=== PATIENT | female | born 1955 | race Caucasian/White ===

== ENCOUNTER 2018-04-23 15:18 | Inpatient (IN) ==
[2018-04-23] MEDS ORDERED: *HR* HYDROcodone/Acet 7.5/325 mg TABLET PO PRN (17:16)
[2018-04-23] MEDS ORDERED: hydrOXYzine pamoate 25 MG CAPSULE PO PRN (17:16)
[2018-04-23] MEDS ORDERED: cloNIDine HCl 0.1 MG TABLET PO PRN (17:26)
[2018-04-23] MEDS ORDERED: Mag Hydrox/Al Hydrox/Simeth 30 ML UDC PO PRN (17:26)
[2018-04-23] MEDS ORDERED: Ipratropium/Albuterol Neb 3 ML IH PRN (17:29)
[2018-04-23] MEDS ORDERED: D5% in Water 1,000 ML IVC PRN (17:39)
[2018-04-23] MEDS ORDERED: *HR* Dextrose 50 % in Water (Syg) 50 ML SYRINGE IVP PRN (17:39)
[2018-04-23] MEDS ORDERED: Dextrose Gel 15 GM/37.5 ML TUBE PO PRN ×2 (17:39)
[2018-04-23] MEDS ORDERED: Warfarin perPT PO PRN (18:00)
[2018-04-23 19:27] LABS: INR 1.3; Prothrombin Time 14.1 Seconds (9.4-12.1)
[2018-04-23] MEDS ORDERED: *HR* Warfarin 7.5 MG TABLET PO ONE (20:21)
[2018-04-23] MEDS ORDERED: Insulin LISPRO 300 UNITS/3 ML VIAL SQ SCH (21:00)
[2018-04-23] MEDS: hydroCHLOROthiazide 25 MG TABLET PO SCH (21:51)
[2018-04-23] MEDS: Gabapentin 300 MG CAPSULE PO SCH (21:52)
[2018-04-23] MEDS: Budesonide/Formoterol 160/4.5 1 PUFF INH IH SCH (21:53)
[2018-04-23] MEDS: Acetaminophen 325 MG TABLET PO SCH (21:57)
[2018-04-24] MEDS: Acetaminophen 325 MG TABLET PO SCH ×2 (00:23→06:45)
[2018-04-24 06:27] LABS: Basophils % 0.6 %; Eosinophils # 0.3 K/mcL (0.0-0.6); Eosinophils % 3.9 %; Hematocrit 38.7 % (35.3-44.9); Hemoglobin 11.9 g/dL (11.5-15.4); Immature Granulocytes % 0.3 % (0-4); Lymphocytes % 28.2 %; Mean Corpuscular HGB Conc 30.7 g/dL (31.6-35.5); Mean Corpuscular Hemoglobin 28.1 pg (28.0-33.3); Mean Corpuscular Volume 91.3 fL (83.0-100.0); Mean Platelet Volume 12.7 fL (9.4-12.4); Monocytes # 0.5 K/mcL (0.0-1.3); Monocytes % 6.2 %; Neutrophils # 4.4 K/mcL (1.6-8.9); Platelet Count 235 K/mcL (140-400); Red Blood Count 4.24 M/mcL (3.82-4.97); Red Cell Distribution Width 16.9 % (11.5-14.5); Segmented Neutrophils % 60.8 %
[2018-04-24 06:28] LABS: INR 1.2; Prothrombin Time 13.4 Seconds (9.4-12.1)
[2018-04-24 06:30] LABS: Activated Partial Thrombo Time 36.1 Seconds (26.0-36.0)
[2018-04-24 06:46] LABS: Calcium 8.8 mg/dL (8.6-10.3); Potassium 3.6 mEq/L (3.5-5.1)
[2018-04-24] MEDS ORDERED: Insulin LISPRO 300 UNITS/3 ML VIAL SQ SCH (07:30)
[2018-04-24] MEDS ORDERED: Acetaminophen 325 MG TABLET PO PRN (07:48)
[2018-04-24] MEDS: Insulin NPH/REG 70/30 100 UNIT/ML (x5UNIT) SQ SCH ×2 (08:02→17:03)
[2018-04-24] MEDS: Gabapentin 300 MG CAPSULE PO SCH ×3 (08:03→21:08)
[2018-04-24] MEDS: Aspirin Enteric Coated 81 MG Tablet PO SCH (08:03)
[2018-04-24] MEDS: hydroCHLOROthiazide 25 MG TABLET PO SCH ×2 (08:03→21:09)
[2018-04-24] MEDS: Lisinopril 20 MG TABLET PO SCH (08:03)
[2018-04-24] MEDS: Furosemide 40 MG TABLET PO SCH (08:03)
[2018-04-24] MEDS: Beclomethasone 80mcg MDI IH SCH (09:58)
[2018-04-24] MEDS: Budesonide/Formoterol 160/4.5 1 PUFF INH IH SCH ×2 (10:00→21:10)
--- NOTE | 2018-04-24 14:16 | Internal Med History&Physical ---
Date of Encounter: 04/24/18 Time of Encounter: 14:10 Assessment and Plan (1) Weakness Current visit: Yes Status: Acute Patient will undergo assessment by physical therapy. She is nearly independent. She will probably not be here long. She wants to continue to smoke. I suspect that she will want to go home soon. (2) Tobacco abuse Current visit: Yes Status: Acute We discussed smoking cessation and she refuses nicotine patch. Staff feels she is continuing to smoke here. (3) Hypertension Current visit: Yes Status: Acute This is clinically stable and we will follow. Qualifiers: Hypertension type: essential hypertension Qualified Code(s): I10 - Essential (primary) hypertension (4) Osteoarthritis Current visit: Yes Status: Acute This is apparently chronic and will follow. Qualifiers: Osteoarthritis location: hip Osteoarthritis type: unspecified Laterality : right Qualified Code(s): M16.11 - Unilateral primary osteoarthritis, right hip (5) Peripheral neuropathy Current visit: Yes Status: Acute As noted, she takes gabapentin for same. I suspect that this is due to diabetes. It has a stocking glove pattern and is just above the ankles in its distribution, distally. 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 (7) Chronic kidney disease, stage III (moderate) Current visit: Yes Status: Acute Apparently due to diabetes. We will need to follow medications and occasional creatinine levels to make sure she is not worsening. Internal Medicine - H&P: HPI Chief complaint: Weakness Admitted From: Hospital to Hospital Transfer Plans for Post Hospital Care: Home History of present illness: Ms. Andre is a 63 year old female with history of bypass back in 2014 she has weakness in her legs, since then. She and her are very inactive physically but she feels that she needs to strengthen her legs. She has had an episode of CHF for about 8 days at [facility]. She states that her primary care physician should her with Lasix and if she had started that earlier, she would have done better. She had gained 11 pounds and has now lost total of nearly 25 pounds. She feels back to baseline in terms of general energy, breathing, no chest discomfort, etc. She is here because she wants to strengthen her legs and become more active. She is concerned about her restrictions and she has been assessed with physical therapy. They have assessed her as independent up in room. She wants to be independent outside of the room. Nursing staff feels that this means she wants to go outside to smoke. They felt that she was not able to do so. I discussed the nicotine patch with the patient and she is not interested. We reviewed her past medical history including peripheral vascular disease with bypass surgery in 2013. She has been doing relatively well, since then, but has been on Coumadin for same. She is diabetic and was not certain of the name of her insulin. She gave me a pharmacy number and I called them. [facility] pharmacy in [place], [place]. She is on Novolin/3035 units before meals, twice a day. She is on no nocturnal insulin or other insulin. Because of problem with her kidneys, her Glucophage was stopped while hospitalized at [facility]. She takes blood pressure medicine including hydrochlorothiazide for this. She states that her blood pressure has been stable and controlled. She smokes about a pack a day for 47 years. She rarely drinks alcohol. She is disabled because of her multiple arthritic complaints. She used to be a bar pharmacist in charge owner. She lives with her , as above. She had cataracts but these are replaced. She has upper and lower plate full dentures. She has peripheral neuropathy which is presumed to be due to diabetes. She is on chronic pain medicines for same as well as back, hip, knee pain. She takes gabapentin 3 times daily for the neuropathic pain. Past Med Surg Social Fam HX - Past Medical History Medical history: cancer, CHF, coronary artery disease, CVA, diabetes, hyperlipidemia, hypertension, myocardial infarction Additional medical history: CKD Psychiatric history: no psych history - Past Surgical History Surgical History: , coronary bypass (CABG), AUDRA/BSO - Social History Smoking Status: Current every day smoker Smokeless Tobacco Status: No Alcohol use: none Drug use: none Internal Medicine - H&P: Meds Aspirin [Lo-Dose Aspirin EC] 81 mg PO DAILY 03/03/17 [History] Atorvastatin [Lipitor] 80 mg PO HS 03/03/17 [History] Fluticasone Propionate Nasal [Flonase] 50 mcg NS DAILY 03/03/17 [History] Gabapentin [Neurontin] 1,200 mg PO TID 03/03/17 [History] HYDROcodone/Acet 7.5/325 mg [Ohlman 7.5-325 mg] 1 tab PO Q6H PRN 03/03/17 [ History] Insulin DETEMIR [Levemir] 50 - 70 unit SQ BID 03/03/17 [History] LORazepam [Ativan] 1 mg PO HS 03/03/17 [History] Levothyroxine Sodium [Synthroid] 200 mcg PO DAILY 03/03/17 [History] Lisinopril [Zestril] 20 mg PO BID 03/03/17 [History] Pioglitazone [Actos] 15 mg PO DAILY 03/03/17 [History] Tizanidine HCl [Zanaflex] 4 mg PO TID 03/03/17 [History] Warfarin [Coumadin] 7.5 mg PO SUMOTUWETHSA 03/03/17 [History] hydrOXYzine HCl [Hydroxyzine HCl] 25 mg PO QID PRN 03/03/17 [History] hydroCHLOROthiazide [Hydrochlorothiazide] 25 mg PO BID 03/03/17 [History] Doxycycline 100 mg PO BID #14 capsule 04/21/17 [Rx] GlipiZIDE [Glipizide ER] 10 mg PO BID 04/21/17 [History] Warfarin [Coumadin] 7.5 mg PO FR 04/21/17 [History] 3 Allergy/AdvReac Type Severity Reaction Status Date / Time Penicillins Allergy Swelling Verified 04/21/17 09:01 of Lip/Tongue/Throat All Systems PM: Patient has no complaint of chest discomfort, dyspnea, orthopnea, breathing problems, palpitations, nausea or vomiting, constipation or diarrhea, other changes in bowel habits, heartburn, difficulty with urination, kidney problems or kidney stones, fevers chills or sweats, rash or itching, seizures, headache or lightheadedness, heat or cold intolerance, blood problems or anemia, or other new complaints, except as mentioned above. Review of systems is otherwise negative. - Constitutional Vitals: Temp Pulse Resp BP Pulse Ox 98.1 F 62 20 175/67 96 04/24/18 11:33 04/24/18 11:33 04/24/18 11:33 04/24/18 11:33 04/24/18 11:33 Exam: Examination: (Except as mentioned above): General: In no apparent distress, alert and oriented 3. She smells strongly of smoke. Head: Atraumatic and normocephalic. Eyes: Extraocular muscles are intact, pupils equal round and reactive to light and accommodation. Sclerae anicteric. Ears: External ears are normal to inspection and hearing is grossly normal. Nose: Patent without lesion noted. Mouth: No intraoral lesions seen. She wears full upper plate and lower plate dentures. Tongue is beefy red consistent with vitamin deficiency or just chronic smoking. Neck: Supple with trachea midline. There is no thyromegaly or adenopathy and carotids are 2+ without bruit heard. Respiratory: No use of accessory muscles. Lungs are clear throughout. Normal airflow. Cardiovascular: Regular rate and rhythm without murmur appreciated. Abdomen: Bowel sounds are normal. No hepatosplenomegaly masses or tenderness. Morbidly obese and therefore difficult to palpate deeply. Patient is examined upright in chair and this also limits exam. Extremities: No cyanosis clubbing or edema. Neurological: A and O 3. Cranial nerves II through XII are intact. No focal deficits and no abnormal movements or postures. Skin: Appropriate surgical scars at regions expected. Warm and non-diaphoretic with no lesions noted. Breasts, pelvic and rectal: Not examined. Internal Med - H&P Results - Labs CBC & Chem 7: 04/24/18 05:25 04/24/18 05:25 Labs: Short CBC 04/24/18 Range/Units 05:25 WBC 7.2 (4.3-11.1) K/mcL Hgb 11.9 (11.5-15.4) g/dL Hct 38.7 (35.3-44.9) % Plt Count 235 (140-400) K/mcL Neutrophils # 4.4 (1.6-8.9) K/mcL BMP 04/24/18 05:25 Sodium 141 Potassium 3.6 Chloride 103 Carbon Dioxide 32 H BUN 47 H Creatinine 1.74 H Glucose 212 H Calcium 8.8
[2018-04-24] MEDS: *HR* HYDROcodone/Acet 5/325 mg TABLET PO PRN (15:56)
[2018-04-24] MEDS ORDERED: *HR* Warfarin 7.5 MG TABLET PO ONE (18:00)
[2018-04-25 05:48] LABS: INR 1.3; Prothrombin Time 14.3 Seconds (9.4-12.1)
[2018-04-25] MEDS: *HR* HYDROcodone/Acet 5/325 mg TABLET PO PRN ×2 (07:20→17:02)
[2018-04-25] MEDS: Lisinopril 20 MG TABLET PO SCH (08:15)
[2018-04-25] MEDS: Furosemide 40 MG TABLET PO SCH (08:15)
[2018-04-25] MEDS: Aspirin Enteric Coated 81 MG Tablet PO SCH (08:15)
[2018-04-25] MEDS: Gabapentin 300 MG CAPSULE PO SCH ×3 (08:15→21:31)
[2018-04-25] MEDS: hydroCHLOROthiazide 25 MG TABLET PO SCH ×2 (08:15→21:33)
[2018-04-25] MEDS: Insulin NPH/REG 70/30 100 UNIT/ML (x5UNIT) SQ SCH ×2 (08:16→17:01)
[2018-04-25] MEDS: Beclomethasone 80mcg MDI IH SCH (10:04)
[2018-04-25] MEDS: Budesonide/Formoterol 160/4.5 1 PUFF INH IH SCH ×2 (10:04→21:39)
--- NOTE | 2018-04-25 12:11 | Internal Med Progress Note ---
Date of Encounter: 04/25/18 Time of Encounter: 12:07 - Assessment and plan (1) CHF (congestive heart failure) Current Visit: Yes Status: Chronic Assessment and plan: No acute issues at this time. Patient continues to have fine posterior basilar rales heard on exam. Eyes any dyspnea. Patient does state she becomes fatigued after ambulating greater than 75 feet. Patient's current INR is subtherapeutic for her Coumadin. We will start on weight-based Lovenox as a bridge until she becomes therapeutic. Coumadin currently is being titrated per pharmacy. We will obtain a chest x-ray for baseline due to her basilar congestion. We will continue with other medications. States therapy is progressing well and will continue with current therapy Qualifiers: Heart failure type: unspecified Heart failure chronicity: chronic Qualified Code(s): I50.9 - Heart failure, unspecified (2) Tobacco abuse Current Visit: Yes Status: Chronic Assessment and plan: Patient continues to be an active smoker at this time. Patient states no desire to stop smoking but states that she hopes to wean herself off over a period of time. Nurse reports suspicious smell of smoke coming from her room on several occasions. Patient was offered a nicotine patch but refused. Patient states that she has been on nicotine patches and Chantix in the past and have not been effective. (3) Hypertension Current Visit: Yes Status: Chronic Assessment and plan: Patient's blood pressure is been slightly elevated with systolic blood pressure greater than 180. Patient does have when necessary clonidine and use. We will start on low-dose amlodipine. Qualifiers: Hypertension type: essential hypertension Qualified Code(s): I10 - Essential (primary) hypertension (4) Insulin-requiring or dependent type II diabetes mellitus Current Visit: Yes Status: Chronic Assessment and plan: Patients glucose has been slightly elevated since her admission. We will continue with current sliding scale coverage and will continue with her long- acting insulin. We will obtain a hemoglobin A1c on next blood draw (5) Chronic kidney disease, stage III (moderate) Current Visit: Yes Status: Chronic Assessment and plan: No acute issues. Patient's last creatinine was 1.74 with a BUNs of 47. We will continue to monitor patient's renal function by serial labs. We will obtain daily weights - Time Spent With Patient less than 15 minutes - Subjective Interval history: Patient appears relaxed and currently denies any shortness breath or discomforts. Patient does state that she continues to have endurance issues, fatigue after ambulating greater than 50-75 feet. Patient denies any productive cough. Patient noted to have subtherapeutic values on her INRs. Patient states that she takes her Coumadin because of her CHF and severe peripheral vascular disease, stating that she has had a left aorta femoropopliteal bypass in the past. Per patient history, she has a long history of tobacco abuse. Patient continues to smoke with reports of nursing at the smelled smoke from her room on several occasions since her admission. Patient states no desire to stop smoking but states that she is attempting to wean herself off. - Constitutional Vitals: Temp Pulse Resp BP Pulse Ox 98.6 F 72 14 183/77 91 04/25/18 07:03 04/25/18 07:03 04/25/18 07:03 04/25/18 07:03 04/25/18 07:03 General appearance: Present: A&O X 3 - Head Head exam: Present: atraumatic, normocephalic - Eye Eye exam: Present: PERRL, conjuntiva pink, sclera anicteric Pupils: Present: PERRL - Neck Neck exam general surgery: Present: supple, trachea midline. Absent: lymphadenopathy - Respiratory Respiratory exam: Present: CTAB, rales. Absent: accessory muscle use, rhonchi, wheezes Additional comments: Lungs are clear throughout upper tanner but noted fine posterior bibasilar rales. Respiratory effort appears relaxed. No productive cough. - Cardiovascular Cardiovascular exam: Present: RRR, +S1, +S2. Absent: diastolic murmur, gallop, rubs, systolic murmur - GI/Abdominal GI/Abdominal exam: Present: normal bowel sounds, soft, no peritoneal signs. Absent: distended, tenderness - Extremities Exam Extremities exam: Present: warm, radial pulses palpable and symmetrical. Absent : calf tenderness, cyanotic, pedal edema Additional comments: Slight edema to bilateral lower legs at 1+ - Neurological Exam Neurological exam: Present: CN II-XII intact, oriented X3, no focal deficits. Absent: pronater drift, facial droop, speech deficit - Skin Skin exam: Present: dry, intact Internal Medicine: Result - Labs CBC & Chem 7: 04/24/18 05:25 04/24/18 05:25 - ABG Interpretation ABG results: PT/INR, D-dimer PT 14.3 Seconds (9.4-12.1) H 04/25/18 05:40 Consult Discharge Plan - Plan Referrals: Arminda Gomez [Primary Care Provider] -
[2018-04-25] MEDS: *HR* Enoxaparin 100 MG/ML SYRINGE SQ SCH (17:02)
[2018-04-25] MEDS ORDERED: *HR* Warfarin 4 MG TABLET PO ONE (18:00)
[2018-04-26] MEDS: *HR* Enoxaparin 100 MG/ML SYRINGE SQ SCH (05:23)
[2018-04-26 05:53] LABS: INR 1.4; Prothrombin Time 15.8 Seconds (9.4-12.1)
[2018-04-26 06:08] LABS: Albumin/Globulin Ratio 0.9 (1.1-2.2); Bilirubin,Total 0.2 mg/dL (0.3-1.0); Calcium 9.3 mg/dL (8.6-10.3); Globulin 3.2 g/dL (2.4-3.5); Magnesium 1.7 mg/dL (1.6-2.6); Potassium 4.4 mEq/L (3.5-5.1); Total Protein 6.2 g/dL (6.4-8.9)
[2018-04-26 06:36] LABS: Hematocrit 41.3 % (35.3-44.9); Hemoglobin 12.8 g/dL (11.5-15.4); Mean Corpuscular Hemoglobin 28.4 pg (28.0-33.3); Mean Corpuscular Volume 91.6 fL (83.0-100.0); Mean Platelet Volume 13.3 fL (9.4-12.4); Platelet Count 234 K/mcL (140-400); Red Blood Count 4.51 M/mcL (3.82-4.97); Red Cell Distribution Width 16.5 % (11.5-14.5)
[2018-04-26 07:11] VITALS: BP 148/71
[2018-04-26] MEDS: hydroCHLOROthiazide 25 MG TABLET PO SCH (08:17)
[2018-04-26] MEDS: Insulin NPH/REG 70/30 100 UNIT/ML (x5UNIT) SQ SCH (08:17)
[2018-04-26] MEDS: Aspirin Enteric Coated 81 MG Tablet PO SCH (08:17)
[2018-04-26] MEDS: Lisinopril 20 MG TABLET PO SCH (08:17)
[2018-04-26] MEDS: Gabapentin 300 MG CAPSULE PO SCH (08:17)
[2018-04-26] MEDS: Furosemide 40 MG TABLET PO SCH (08:17)
[2018-04-26] MEDS: *HR* HYDROcodone/Acet 5/325 mg TABLET PO PRN (08:30)
[2018-04-26] MEDS ORDERED: amLODIPine 5 MG TABLET PO SCH (09:00)
[2018-04-26] MEDS: Beclomethasone 80mcg MDI IH SCH (10:22)
[2018-04-26] MEDS: Budesonide/Formoterol 160/4.5 1 PUFF INH IH SCH (10:23)
--- NOTE | 2018-04-26 11:28 | Internal Med Progress Note ---
Date of Encounter: 04/26/18 Time of Encounter: 11:26 - Assessment and plan (1) CHF (congestive heart failure) Current Visit: Yes Status: Chronic Assessment and plan: No acute issues at this time. Patient does state she becomes fatigued after ambulating greater than 75 feet, and was observed ambulating on room air. After ambulation patient's oxygen level was checked on room air and maintaining greater than 88%.. Patient's current INR remains subtherapeutic for her Coumadin, which is being managed by pharmacy. Does not has been titrated up and will be rechecked in the morning.. We will continue on weight-based Lovenox as a bridge until she becomes therapeutic. Recent chest x-ray was nonacute.. We will continue with other medications. States therapy is progressing well and will continue with current therapy Qualifiers: Heart failure type: unspecified Heart failure chronicity: chronic Qualified Code(s): I50.9 - Heart failure, unspecified (2) Tobacco abuse Current Visit: Yes Status: Chronic Assessment and plan: No current issues. Patient continues to refuse nicotine patch, stating that they do not work well with her. We will continue education on tobacco cessation (3) Hypertension Current Visit: Yes Status: Chronic Assessment and plan: Patient's blood pressure is been slightly elevated with systolic blood pressure greater than 180. Patient does have when necessary clonidine and use. We will start on low-dose amlodipine. Qualifiers: Hypertension type: essential hypertension Qualified Code(s): I10 - Essential (primary) hypertension (4) Insulin-requiring or dependent type II diabetes mellitus Current Visit: Yes Status: Chronic Assessment and plan: Patients glucose has been slightly elevated since her admission. We will continue with current sliding scale coverage and will continue with her long- acting insulin. Hemoglobin A1c continues to be pending (5) Chronic kidney disease, stage III (moderate) Current Visit: Yes Status: Chronic Assessment and plan: No acute issues. Patient's last creatinine was 1.5 with a BUNs of 47. We will continue to monitor patient's renal function by serial labs. We will continue to obtain daily weights - Time Spent With Patient less than 15 minutes - Subjective Interval history: Patient appears relaxed and currently denies any shortness breath or discomforts. Patient does state that she continues to have endurance issues, fatigue after ambulating greater than 50-75 feet. Patient ambulated on room air and her oxygen saturation remained greater than 88% Patient denies any productive cough. Patient noted to continue to have subtherapeutic values on her INR, which is being in titrated by pharmacy. Patient states concern about her INR levels, stating that she was to Coumadin clinic. - Constitutional Vitals: Temp Pulse Resp BP Pulse Ox 97.6 F 60 18 148/71 96 04/26/18 07:10 04/26/18 07:10 04/26/18 08:48 04/26/18 07:10 04/26/18 08:48 General appearance: Present: A&O X 3, pleasant - Head Head exam: Present: atraumatic, normocephalic - Eye Eye exam: Present: PERRL, conjuntiva pink, sclera anicteric Pupils: Present: PERRL - Neck Neck exam general surgery: Present: supple, trachea midline. Absent: lymphadenopathy - Respiratory Respiratory exam: Present: CTAB. Absent: accessory muscle use, rales, rhonchi, wheezes Additional comments: Lungs are clear throughout upper tanner and diminished to basilar tanner. Respiratory effort appears relaxed. Oxygen saturation maintains greater than 90 % - Cardiovascular Cardiovascular exam: Present: RRR, +S1, +S2. Absent: diastolic murmur, gallop, rubs, systolic murmur - GI/Abdominal GI/Abdominal exam: Present: normal bowel sounds, soft, no peritoneal signs. Absent: distended, tenderness - Extremities Exam Extremities exam: Present: warm, radial pulses palpable and symmetrical. Absent : calf tenderness, cyanotic, pedal edema - Neurological Exam Neurological exam: Present: CN II-XII intact, oriented X3, no focal deficits. Absent: pronater drift, facial droop, speech deficit - Skin Skin exam: Present: dry, intact Internal Medicine: Result - Labs CBC & Chem 7: 04/26/18 05:30 04/26/18 05:30 Labs: Short CBC 04/26/18 Range/Units 05:30 WBC 8.3 (4.3-11.1) K/mcL Hgb 12.8 (11.5-15.4) g/dL Hct 41.3 (35.3-44.9) % Plt Count 234 (140-400) K/mcL BMP 04/26/18 05:30 Sodium 140 Potassium 4.4 Chloride 101 Carbon Dioxide 35 H BUN 47 H Creatinine 1.50 H Glucose 133 H Calcium 9.3 Liver Function 04/26/18 Range/Units 05:30 Total Bilirubin 0.2 L (0.3-1.0) mg/dL AST 17 (13-39) Units/L ALT 17 (7-52) Units/L Alkaline Phosphatase 53 (34-104) Units/L Albumin 3.0 L (3.5-5.7) g/dL - ABG Interpretation ABG results: PT/INR, D-dimer PT 15.8 Seconds (9.4-12.1) H 04/26/18 05:30 - Impressions Impressions Chest X-Ray 04/25/18 12:02 IMPRESSION: CHF and mild pulmonary edema with a small left pleural effusion. D/ / Phong Leblanc MD / Phong Leblanc MD Interpreting Provider: Phong Leblanc MD Consult Discharge Plan - Plan Referrals: Arminda Gomez [Primary Care Provider] -
--- NOTE | 2018-04-26 13:27 | Discharge Summary ---
- NOTES TO OUTPATIENT PROVIDER Notes to Outpatient Provider: INR is still subtherapeutic. For this reason, will require Lovenox until at least 2. Patient has been encouraged to discontinue smoking but resistant. She knows to check her weight, daily and adjust diuretic appropriately. Orders not resulted at time of discharge: Pending orders 04/27/18 06:00 PT/INR [Prothrombin Time INR] [COAG] DAILY 04/28/18 06:00 PT/INR [Prothrombin Time INR] [COAG] DAILY 04/29/18 06:00 PT/INR [Prothrombin Time INR] [COAG] DAILY 04/30/18 06:00 PT/INR [Prothrombin Time INR] [COAG] DAILY 05/01/18 06:00 PT/INR [Prothrombin Time INR] [COAG] DAILY 05/02/18 06:00 PT/INR [Prothrombin Time INR] [COAG] DAILY 05/03/18 06:00 PT/INR [Prothrombin Time INR] [COAG] DAILY Date of Encounter: 04/26/18 Time of Encounter: 13:26 - Discharge Diagnosis (1) Weakness Priority: Primary Status: Acute (2) Tobacco abuse Priority: Secondary Status: Chronic (3) Hypertension Priority: Secondary Status: Chronic Comments: Clinically stable Qualifiers: Hypertension type: essential hypertension Qualified Code(s): I10 - Essential (primary) hypertension (4) Osteoarthritis Priority: Secondary Status: Acute Qualifiers: Osteoarthritis location: hip Osteoarthritis type: unspecified Laterality : right Qualified Code(s): M16.11 - Unilateral primary osteoarthritis, right hip (5) Peripheral neuropathy Priority: Secondary Status: Acute Qualifiers: 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 Hospital course: Ms. Andre is a 63 year old female Ms. Andre is a 63 year old female with history of bypass back in 2014 she has weakness in her legs, since then. She and her are very inactive physically but she feels that she needs to strengthen her legs. She has had an episode of CHF for about 8 days at [place]. She states that her primary care physician treated her with Lasix and if she had started that earlier, she would have done better. She had gained 11 pounds and has now lost total of nearly 25 pounds. She feels back to baseline in terms of general energy, breathing, no chest discomfort, etc. She was admitted to try to gain some strength in her legs and did well with therapy. She was min assist to up in room, independently. She was felt to be reaching baseline and it was determined that she could go home. Patient has no complaint of chest discomfort, dyspnea, orthopnea, palpitations, nausea or vomiting, constipation or diarrhea, other changes in bowel habits, difficulty with urination, rash or itching, or other new complaints, except as mentioned above. Review of systems is otherwise negative. I discussed management of her care with nursing staff. - Time Spent with Patient Total time spent providing and/or coordinating discharge services: - Discharge Medications Prescriptions: Enoxaparin [Lovenox *PHARMACY WT BASED*] 100 mg SQ Q12HR #10 syringe Warfarin [Coumadin] 7.5 mg PO 1800 #1 tablet Home Medications: Aspirin [Lo-Dose Aspirin EC] 81 mg PO DAILY 03/03/17 [History] Atorvastatin [Lipitor] 80 mg PO HS 03/03/17 [History] Gabapentin [Neurontin] 1,200 mg PO TID 03/03/17 [History] HYDROcodone/Acet 7.5/325 mg [Mobile 7.5-325 mg] 1 tab PO Q6H PRN 03/03/17 [ History] Levothyroxine Sodium [Synthroid] 200 mcg PO DAILY 03/03/17 [History] Lisinopril [Zestril] 20 mg PO DAILY 03/03/17 [History] hydroCHLOROthiazide [Hydrochlorothiazide] 25 mg PO BID 03/03/17 [History] Enoxaparin [Lovenox *PHARMACY WT BASED*] 100 mg SQ Q12HR #10 syringe 04/26/18 [ Rx] Warfarin [Coumadin] 7.5 mg PO 1800 #1 tablet 04/26/18 [Rx] Allergies/Adverse Reactions: 3 Allergy/AdvReac Type Severity Reaction Status Date / Time Penicillins Allergy Swelling Verified 04/21/17 09:01 of Lip/Tongue/Throat Date of admission: 04/23/18 18:41 Primary care physician: Arminda Gomez Consults: 04/23/18 17:11 Consult to Occupational Therapy [CONS] Routine Comment: Evaluate, develop and implement POC Reason for Consult: deconditioning s/p resp failure Does patient have active BEDREST order?: No Is patient medically & hemodynamically stable?: Yes Patient assessed for mobility or mobilized this visit?: Yes Consult to Physical Therapy [CONS] Routine Comment: Evaluate, develop and implement POC Reason for Consult: deconditioning s/p resp failure Does patient have active BEDREST order?: No Is patient medically & hemodynamically stable?: Yes Patient assessed for mobility or mobilized this visit?: Yes Consult to Recreational Therapy [CONS] Routine Comment: Evaluate, develop and implement POC Consult to Regulatory Auditor [CONS] Routine Reason for SW Consult: discharge planning Discharging clinician: Mando Ruiz Anticipated date of discharge: 04/26/18 - Constitutional Vitals: Temp Pulse Resp BP Pulse Ox 97.6 F 60 18 148/71 96 04/26/18 07:10 04/26/18 07:10 04/26/18 08:48 04/26/18 07:10 04/26/18 08:48 General appearance: Present: pleasant Exam: Examination: (Except as mentioned above): General: In no apparent distress. Alert and oriented 3. Nondiaphoretic. Head: Atraumatic and normocephalic. Respiratory: No use of accessory muscles. Lungs are clear throughout. Normal airflow. Cardiovascular: Regular rate and rhythm without murmur appreciated. Abdomen: Bowel sounds are normal. No hepatosplenomegaly mass or tenderness appreciated. Morbidly obese and therefore difficult to palpate deeply. Extremities: No cyanosis clubbing or edema. Skin: Warm and non-diaphoretic with no new lesions noted. - Patient Status Disposition: Home, Self-Care Condition: Fair Functional capacity at discharge: independent ambulation Overall status at discharge: patient is progressing back to baseline - Discharge Instructions Follow Up With: brianda Nelson [Other] - 05/04/18 10:30 am Arminda Gomez [Primary Care Provider] - 05/03/18 11:00 am (follow up appointment with nurse practitioner, please dicuss your need for follow up for coumadin therapy.)
[2018-04-26] MEDS ORDERED: *HR* Warfarin 10 MG TABLET PO ONE (18:00)
== END 2018-04-26 15:25 | disposition home or self-care (01) | DRG 945 ==
LOC: INPGRE 18:41